=== PATIENT | male | born 1935 | race Asian ===

== ENCOUNTER → 2018-07-24 | Day surgery (SDC) | payer MEDICARE, MEDICAID ==
[~2018-07-24] MED LIST: IOHEXOL-350 100 ML BOTTLE ONE
== END | disposition home or self-care (01) ==
LOC: CT 09:49
PROVIDERS: ATTEND Internal Medicine Cardiovascular Disease
DX: I65.21 Occlusion and stenosis of right carotid artery (principal); I67.1 Cerebral aneurysm, nonruptured
CPT/HCPCS: 70498; Q9967